=== PATIENT | male | born 1995 | race Asian ===

== ENCOUNTER 2023-12-11 18:53 | Emergency (ER) | payer BC, SELFPAY ==
[2023-12-11 19:03] VITALS: BP 114/78
[2023-12-11 19:45] LABS: % Basophils 0.4 % (0-2); % Eosinophils 1.9 % (0-6); % Immature Granulocytes 0.3 % (0-0.5); % Monocytes 9.7 % (1.7-9.3); % Neutrophils 63.7 % (42.2-75.2); Absolute Eosinophils 0.2 10^3/uL (0-0.7); Absolute Lymphocytes 2.3 10^3/uL (1.2-3.4); Absolute Monocytes 0.9 10^3/uL (0.1-0.6); Absolute Neutrophils 6.1 10^3/uL (1.4-6.5); Hematocrit 39.5 % (39.0-52.0); Hemoglobin 13.4 g/dL (13.0-18.0); Mean Corp Hgb Conc. 33.9 g/dL (33.0-37.0); Mean Corpuscular Hgb 27.5 pg (27.0-31.0); Mean Corpuscular Volume 81.1 fL (80.0-94.0); Mean Platelet Volume 9.5 fL (7.4-10.4); Nucleated Red Blood Cells % 0 % (-); Platelet Count 277 10^3/uL (130-400); Red Blood Cell Count 4.87 10^6/uL (4.70-6.10); White Blood Cell Count 9.6 10^3/uL (4.8-10.8)
[2023-12-11 20:00] LABS: ALT (SGPT) 38 U/L (0-50); AST (SGOT) 68 U/L (17-59); Albumin 4.8 g/dl (3.5-5.0); Alkaline Phosphatase 73 U/L (38-126); Blood Urea Nitrogen 12 mg/dl (9-20); Calcium 9.9 mg/dl (8.4-10.2); Carbon Dioxide 27 mmol/L (22-30); Chloride 101 mmol/L (98-107); Glucose 96 mg/dl (70-99); Sodium 140 mmol/L (135-145); Total Bilirubin 0.4 mg/dl (0.2-1.3); Total Protein 7.8 g/dl (6.3-8.2); eGFR > 60.00
[2023-12-11] MEDS: MOTRIN 600 MG PO (20:33)
[2023-12-11] MEDS: TYLENOL 1000 MG PO (20:33)
--- NOTE | 2023-12-11 20:37 | ED.GENMED ---
History of Present Illness
General
Chief Complaint: Headache
Source: patient
Exam Limitations: none
Time Seen by Provider: 12/11/23 20:18
History of Present Illness
History of Present Illness:
This is a 28 year old male that comes in with c/o headache on the top of his head. States that this has been going on for the past 2 days and that there was no injury. States that when he lays down he gets pressure and he feels like there is fluid.
States that with the headache he feels lightheaded and has had some nausea. Denies any fever, chills, chest pain, SOB, abd pain, vomiting, diarrhea, urinary burning.
Past History
Past History
ED Past Medical History: Other (Constipation)
ED Past Surgical History: None
Social History
Tobacco: Non-smoker
Alcohol: Occasional
Drug: None
Personal:
Living: with family
Employment: Employed
Review of Systems
Review of Systems
All Other Systems: ROS reviewed and negative except as documented in HPI and ROS
Constitutional: Reports no symptoms
EENT: Reports no symptoms
Respiratory: Reports no symptoms
Cardiac: Reports no symptoms
ABD/GI: Reports nausea; Denies abdominal pain, vomiting or diarrhea
: Reports no symptoms
Musculoskeletal: Reports no symptoms
Skin: Reports no symptoms
Neurological: Reports headache and other (Lightheaded); Denies dizzy
Psychiatric: Reports no symptoms
Phy Exam
General Physical Exam
General Presentation: well appearing and no apparent distress
General age: appears stated age
General Skin: warm and dry
General Habitus: normal
General Mental: alert
General Hydration: appears well hydrated
ENT Exam
ENT Exam: TM's normal, pharynx normal and neck supple
Eye Exam
Eye Exam: EOMI
Cardiovascular Exam
Cardiovascular Exam: regular rate/rhythm, no edema, no murmur and normal peripheral pulses
Pulmonary Exam
Pulmonary Exam: lungs clear, no respiratory distress, no rales, chest non tender, no crackles, no rhonchi, no wheezing and no cough
Gastrointestinal Exam
Gastrointestinal Exam: normal bowel sounds, non tender, soft, no organomegaly, no pulsatile mass and non distended
Musculoskeletal Exam
Musculoskeletal Exam: full ROM and no edema
Skin Exam
Skin Exam: normal color, warm/dry, no rash and no petechia
Psychiatric Exam
Psychiatric Exam: normal mood/affect
Course
Orders/Labs/Results
Orders:
Orders
12/11/23 19:01
EKG [Electrocardiogram (*1)] Urgent
Reason for Study: Vertigo / Dizzy
EKG- Treatment ONCE
12/11/23 19:18
CBC/With Diff [Complete Blood Count/With Diff] Urgent
CMP [Comprehensive Metabolic Panel] Urgent
12/11/23 20:27
CT Head W/o Iv Contrast Urgent
Comment:
Reason For Exam: Headache
Acetaminophen [Tylenol] 1,000 mg PO NOW STA
Ibuprofen [Motrin] 600 mg PO NOW STA
12/11/23 22:41
Azithromycin [Zithromax] 500 mg PO NOW STA
Abnormal Lab Results
12/11/23
19:18
Absolute Monos (auto) 0.9 H 10^3/uL
(0.1-0.6)
Monocytes % 9.7 H %
(1.7-9.3)
AST 68 H U/L
(17-59)
12/11/23 19:18
12/11/23 19:18
AST slightly elevated. Otherwise normal labs.
Vital Signs
Initial and Last Documented VS:
Initial Vital Signs
Temp Pulse Resp BP Pulse Ox
98 F 77 15 114/78 99
12/11/23 19:03 12/11/23 19:03 12/11/23 19:03 12/11/23 19:03 12/11/23 19:03
Last Documented Vital Signs
Temp Pulse Resp BP Pulse Ox
98.4 F 70 16 107/65 100
12/11/23 21:54 12/11/23 22:36 12/11/23 21:54 12/11/23 21:54 12/11/23 21:54
MDM/Problems Addressed
Differential Diagnosis Includes:
Headache,
MDM/Problems Addressed:
This is a 28 year old male that comes in with c/o headache. States that this started 2 days ago and it is a pressure on top of his head. States that when he lays down he feels that there is fluid.
Will check labs and get CT head.
Back into see patient. Explained that the CT shows right sphenoid sinus disease. This could be acute or chronic. However, since this is causing patient to have a headache will treat. Will start on Zithromax and send a prescription to the pharmacy.
Patient to use Tylenol and Ibuprofen for pain. Return with any concerns.
Chronic conditions affecting care:
NA
Acute Exacerbation and/or Progression of Chronic Illness:
NA
*Radiology
Radiology exam reviewed: radiology read reviewed (CT head- No evidence of acute intracranial abnormality. Moderte to severe peripheral mucosal thickening of the right sphenoid sinus, which could be acute or chronic. There is no air-fluid level
identified. Please correlate with any symptoms that could be from a right sphenoid sinusitis. )
*Pulse Oximetry
Patient hypoxic: no
*EKG
Interpreted by ED Provider?: NA
Rate: EKG- N/A
*Residential Sales Manager Interpretation
Rate: Residential Sales Manager- N/A
*Critical Care Note
Total Time (30-74mins, 75-104mins- exclusive of procedures): Not Applicable
ED Attending Note
-
Portions of this chart may have been created with voice recognition software.� Occasional wrong word or��sound alike� substitutions may have occurred due to the inherent limitations of voice recognition software.
Discharge Plan
Departure
Patient Disposition: Home (Routine Discharge)
Date of Disposition: 12/11/23
Time of Disposition: 22:43
Patient with high blood pressure during this ER visit?: No
Condition: Good
Covid-19: Not Applicable
Discharge Problem:
Acute sinusitis, Headache
Instructions: Headache, Adult (DC), Sinusitis, Adult ED
Prescriptions:
New
azithromycin [Zithromax] 250 mg tablet
250 mg PO DAILY Qty: 4 0RF
Referrals:
Charu Francis MD [Family Provider] -
Activity Restrictions/Additional Instructions:
As discussed, your blood work shows that your AST is slightly elevated. This can go up with alcohol use. Your CT of the head shows some sinus disease. You have been given your first dose of antibiotic here and a prescription has been sent to your
Pharmacy. Please take as directed. You may also use Tylenol or Ibuprofen for headache pain. Please increase your water intake to 8-8oz glasses daily. Follow up with the family doctor. IF YOU HAVE ANY OTHER CONCERNS PLEASE RETURN TO THE EMERGENCY
ROOM.
Interventions
Interventions:
*Risk Screen - Suicide Last Done: 12/11/23 19:03
*General Assessment Last Done: 12/11/23 19:03
*Neglect/Abuse Screening Last Done: 12/11/23 19:03
*ED COVID-19 Vaccine History Last Done: 12/11/23 20:35
*Nursing Disposition Last Done: 12/11/23 23:02
ED- Neurological Assessment Last Done: 12/11/23 20:35
Discharge Date and Time
Discharge Date/Time: 12/11/23 23:03
Print Language: IRANIAN
[2023-12-11 21:54] VITALS: BP 107/65
[2023-12-11] MEDS: ZITHROMAX 500 MG PO (22:49)
== END 2023-12-11 23:03 | disposition home or self-care (01) ==
LOC: EMR 18:53
PROVIDERS: Emergency Medicine; EMERGENCY PHYSICIAN Emergency Medicine; FAMILY PHYSICIAN Family Medicine
DX: J01.90 Acute sinusitis, unspecified (principal); R51.9 Headache, unspecified
CPT/HCPCS: 99284; 70450; 80053; 85025; 93005

== ENCOUNTER → 2024-07-18 09:46 | Outpatient (REF) | payer BC, OTHER, SELFPAY | LOC: RAD 09:46 | PROVIDERS: ATTENDING PHYSICIAN Nurse Practitioner Family; FAMILY PHYSICIAN Family Medicine | DX: R05.1 Acute cough (principal); R05.9 Cough, unspecified | CPT/HCPCS: 71046 ==